=== PATIENT | female | born 1940 | race Caucasian/White ===

== ENCOUNTER 2016-11-08 17:53 | Inpatient (IN) | payer MEDICARE, OTHER ==
[~2016-11-08] VITALS: Ht 160 cm; Wt 85.5 kg
[2016-11-08 19:47] LABS: Basophils # (auto) 0.1 uL; Basophils % (auto) 0.6 % (0.0-2.0); CONDITION Y; DEFINITIVE SEE PRINTOUT; Eosinophils # (auto) 0.2 uL; Hematocrit 42.7 % (36.0-46.0); Hemoglobin 13.8 g/dL (12.2-16.2); Lymphocytes # (auto) 2.2 uL; Lymphocytes % (auto) 14.1 % (10.0-50.0); Mean Corpuscular Hemoglobin 24.7 pg (28.0-32.0); Mean Corpuscular Hgb Conc. 32.4 g/dL (32.0-36.0); Mean Corpuscular Volume 76.3 fL (80.0-100.0); Mean Platelet Volume 10.3 fL (7.4-10.4); Monocytes # (auto) 0.8 uL; Monocytes % (auto) 5.4 % (0.0-12.0); Neutrophils # (auto) 12.2 uL; Neutrophils % (auto) 78.9 % (37.0-80.0); Platelet Count (auto) 343 10^3/uL (140-450); Red Cell Distribution Width 14.7 % (11.6-16.0); White Blood Cell 15.5 10^3/uL (4.4-10.8)
[2016-11-08 20:06] LABS: Albumin 4.3 g/dL (3.4-5.0); Alkaline Phosphatase 100 U/L (45-117); Anion Gap 11 (5-15); Aspartate Aminotransferase 18 U/L (15-37); BUN/Creatinine Ratio 17.1; Bilirubin, Total 0.4 mg/dL (0.2-1.0); Blood Urea Nitrogen 19 mg/dL (7-18); Calcium 9.5 mg/dL (8.5-10.1); Carbon Dioxide 25 mmol/L (21-32); Chloride 107 mmol/L (98-107); GFR African American 61 mL/min; GFR Non-African American 51 mL/min; Glucose 156 mg/dL (74-106); Magnesium 2.2 mg/dL (1.6-2.6); Potassium 4.5 mmol/L (3.5-5.1); Sodium 143 mmol/L (136-145); Total Protein 7.8 g/dL (6.4-8.2)
[2016-11-08] MEDS ORDERED: cloNIDine HCL 0.1 MG TAB PO ONE (23:15)
[2016-11-08 23:56] LABS: Amylase 60 U/L (25-115)
[2016-11-09] MEDS ORDERED: ONDANSETRON HCL 4 MG/2 ML VIAL IV ONE (01:45)
[2016-11-09] MEDS ORDERED: MORPHINE SULF INJ 2 MG/ML SYRINGE 1ML IV ONE (01:45)
[2016-11-09] MEDS ORDERED: NITROGLYCERIN 0.4 MG SL TAB SL PRN (02:00)
[2016-11-09] MEDS ORDERED: ACETAMINOPHEN 500 MG TAB PO PRN (02:00)
[2016-11-09] MEDS ORDERED: TEMAZEPAM 15 MG CAP PO PRN (02:00)
[2016-11-09] MEDS ORDERED: HYDROcodone-ACET 5/325MG TAB PO PRN (02:00)
[2016-11-09] MEDS ORDERED: MORPHINE SULF INJ 2 MG/ML SYRINGE 1ML IV PRN ×2 (02:00)
[2016-11-09] MEDS ORDERED: ONDANSETRON HCL 4 MG/2 ML VIAL IV PRN (02:00)
[2016-11-09] MEDS ORDERED: LORazepam 0.5 MG TAB PO PRN (02:00)
[2016-11-09] MEDS: SODIUM CHLORIDE 0.9% 1,000 ML IV SCH ×3 (02:18→22:15)
[2016-11-09 03:20] LABS: Lactic Acid w/Reflex 3.8 mmol/L (0.4-2.0)
[2016-11-09 03:24] LABS: REFLEX LACTIC ACID YES OR NO YES
[2016-11-09] MEDS: metroNIDAZOLE 500MG/100ML 100 ML IV SCH ×3 (06:20→17:57)
[2016-11-09 07:05] LABS: Urine Bilirubin Negative (Negative); Urine Blood TRACE /uL (Negative); Urine Color Yellow (Yellow); Urine Mucus FEW (None Seen); Urine Nitrite Negative (Negative); Urine RBC 2 /hpf (0 - 4); Urine Squamous Epithelial Cell FEW /hpf (<5); Urine Urobilinogen Normal (Negative)
[2016-11-09 07:07] LABS: Urine Glucose 2+ mg/dL (Normal); Urine Ketone 1+ (Negative)
[2016-11-09 08:50] VITALS: BP 104/53
[2016-11-09 11:57] VITALS: BP 105/60
[2016-11-09] MEDS: PANTOPRAZOLE SODIUM 40 MG/10 ML VIAL IV SCH ×2 (12:18→22:14)
[2016-11-09 15:03] LABS: Basophils # (auto) 0.1 uL; Basophils % (auto) 0.9 % (0.0-2.0); CONDITION Y; DEFINITIVE SEE PRINTOUT; Eosinophils # (auto) 0.1 uL; Eosinophils % (auto) 0.8 % (0.0-7.0); Hematocrit 34.3 % (36.0-46.0); Hemoglobin 11.2 g/dL (12.2-16.2); Lymphocytes # (auto) 2.4 uL; Lymphocytes % (auto) 22.1 % (10.0-50.0); Mean Corpuscular Hemoglobin 25.1 pg (28.0-32.0); Mean Corpuscular Hgb Conc. 32.8 g/dL (32.0-36.0); Mean Corpuscular Volume 76.5 fL (80.0-100.0); Mean Platelet Volume 9.6 fL (7.4-10.4); Monocytes # (auto) 0.8 uL; Monocytes % (auto) 7.4 % (0.0-12.0); Neutrophils # (auto) 7.4 uL; Neutrophils % (auto) 68.8 % (37.0-80.0); Platelet Count (auto) 264 10^3/uL (140-450); White Blood Cell 10.7 10^3/uL (4.4-10.8)
[2016-11-09 15:11] LABS: BUN/Creatinine Ratio 21.5; Calcium 8.6 mg/dL (8.5-10.1); Potassium 4.1 mmol/L (3.5-5.1)
[2016-11-09 17:17] VITALS: BP 121/64
[2016-11-09 22:00] VITALS: BP 129/73
[2016-11-10] MEDS: metroNIDAZOLE 500MG/100ML 100 ML IV SCH ×3 (00:09→12:00)
[2016-11-10 05:00] VITALS: BP 154/87
[2016-11-10] MEDS: SODIUM CHLORIDE 0.9% 1,000 ML IV SCH (06:13)
[2016-11-10 06:28] LABS: Basophils # (auto) 0.1 uL; Basophils % (auto) 0.7 % (0.0-2.0); CONDITION Y; DEFINITIVE SEE PRINTOUT; Eosinophils # (auto) 0.2 uL; Eosinophils % (auto) 2.8 % (0.0-7.0); Hematocrit 33.7 % (36.0-46.0); Hemoglobin 11.1 g/dL (12.2-16.2); Lymphocytes # (auto) 2.8 uL; Lymphocytes % (auto) 36.4 % (10.0-50.0); Mean Corpuscular Hemoglobin 25.1 pg (28.0-32.0); Mean Corpuscular Hgb Conc. 32.9 g/dL (32.0-36.0); Mean Corpuscular Volume 76.5 fL (80.0-100.0); Mean Platelet Volume 9.6 fL (7.4-10.4); Monocytes # (auto) 0.5 uL; Monocytes % (auto) 6.8 % (0.0-12.0); Neutrophils # (auto) 4.1 uL; Neutrophils % (auto) 53.3 % (37.0-80.0); Platelet Count (auto) 243 10^3/uL (140-450); Red Cell Distribution Width 15.3 % (11.6-16.0); White Blood Cell 7.6 10^3/uL (4.4-10.8)
[2016-11-10 06:42] LABS: INR 1.05 (0.9-1.15); Partial Thromboplastin Time 25.4 sec (22.64-33.71); Prothrombin Time 11.4 sec (9.37-12.3)
[2016-11-10 06:44] LABS: Calcium 8.4 mg/dL (8.5-10.1); Potassium 4.8 mmol/L (3.5-5.1)
[2016-11-10 08:00] VITALS: BP 118/73
[2016-11-10 08:45] VITALS: BP 158/85
[2016-11-10] MEDS ORDERED: LIDOCAINE VISCOUS 2% 15ML UD ONE (10:24)
[2016-11-10] MEDS ORDERED: diphenhdrAMINE HCL 50 MG/1 ML VL ONE (10:25)
[2016-11-10] MEDS ORDERED: SODIUM CHLORIDE LOCK 10 ML ONE (10:25)
[2016-11-10] MEDS: MIDAZOLAM HCL 5 MG/ML-1ML VIAL ONE ×2 (12:17→12:21)
[2016-11-10] MEDS: fentaNYL CITRATE 100 MCG/2 ML VL ONE ×2 (12:17→12:21)
[2016-11-10] MEDS ORDERED: FLUO-125 PO (12:42)
[2016-11-10] MEDS ORDERED: LISI2.5T47 PO (12:42)
[2016-11-10] MEDS ORDERED: PANT1INJ3 PO (12:42)
[2016-11-10] MEDS ORDERED: GABA-497 PO (12:42)
[2016-11-10] MEDS ORDERED: ATE50T PO (12:42)
[2016-11-10] MEDS ORDERED: ALPR0.254 PO (12:42)
[2016-11-10 14:00] VITALS: BP 141/72
[2016-11-10] MEDS ORDERED: LISINOPRIL 10 MG TAB PO ONE (14:00)
[2016-11-10] MEDS ORDERED: ATENOLOL 50 MG TAB PO ONE (14:00)
[2016-11-10 16:14] VITALS: BP 141/72
[2016-11-10 17:07] VITALS: BP 145/81
[2016-11-10] MEDS ORDERED: PANTOPRAZOLE 40 MG TAB PO SCH (22:00)
== END 2016-11-10 17:37 | disposition home health service (06) | DRG 392 ==
LOC: ER 17:59 → OVERFLOW 18:00 → TELE-E-ADS 11-09 07:52 → EAST 11-09 11:48
PROVIDERS: ADMIT Nurse Practitioner Family; ATTEND Internal Medicine
PROC: 0DB68ZX Excision of Stomach, Via Natural or Artificial Opening Endoscopic, Diagnostic (ICD-10-PCS; principal; 2016-11-10 12:15)
DX: K44.9 Diaphragmatic hernia without obstruction or gangrene (principal); E86.0 Dehydration; K21.9 Gastro-esophageal reflux disease without esophagitis; F41.9 Anxiety disorder, unspecified; I10 Essential (primary) hypertension; D72.829 Elevated white blood cell count, unspecified; K29.70 Gastritis, unspecified, without bleeding; Z82.49 Family history of ischemic heart disease and other diseases of the circulatory system; Z90.49 Acquired absence of other specified parts of digestive tract
CPT/HCPCS: 36415; 71020; 74176; 80048; 80053; 81001; 82150; 83036; 83605; 83690; 83735; 84484; 85025; 85610; 85730; 86677; 87040; 87086; 93005; 96374; 96375; C9113; J2250; J2405; J3490

== ENCOUNTER 2020-07-07 07:31 | Inpatient (IN) | payer OTHER ==
[~2020-07-07] VITALS: Ht 160 cm; Wt 74.0 kg
[~2020-07-07 07:31] MED LIST: ALPR0.254 PO; ATE50T PO; FLUO-125 PO; GABA300C10 PO; LISI2.5T47 PO
[2020-07-07] MEDS ORDERED: ONDANSETRON HCL 4 MG/2 ML VIAL IV ONE (08:45)
[2020-07-07] MEDS ORDERED: MORPHINE SULFATE 4 MG/ML SYR/VIAL IV ONE (08:45)
[2020-07-07 11:28] LABS: Basophils # (auto) 0.1 10 ^3/uL (0-0.2); Eosinophils # (auto) 0.1 10 ^3/uL (0-0.8); Lymphocytes % (auto) 8.1 % (10.0-50.0); Monocytes # (auto) 0.7 10 ^3/uL (0-1.3); Neutrophils % (auto) 84.8 % (37.0-80.0)
[2020-07-07 11:30] LABS: Basophils % (auto) 0.4 % (0.0-2.0); Eosinophils % (auto) 0.8 % (0.0-7.0); Hematocrit 36.3 % (36.0-46.0); Mean Corpuscular Hemoglobin 25.8 pg (28.0-32.0); Mean Corpuscular Volume 78.2 fL (80.0-100.0); Monocytes % (auto) 5.9 % (0.0-12.0); Neutrophils # (auto) 10.7 10 ^3/uL (1.6-8.6); Platelet Count (auto) 268 10^3/uL (140-450); Red Blood Cells 4.65 10^6/uL (4.0-5.20); Red Cell Distribution Width 14.7 % (11.8-14.3); White Blood Cell 12.7 10^3/uL (4.4-10.8)
[2020-07-07 11:42] LABS: Albumin 3.2 g/dL (3.4-5.0); Anion Gap 4 (5-15); Blood Urea Nitrogen 17 mg/dL (7-18); Calcium 8.7 mg/dL (8.5-10.1); Carbon Dioxide 27 mmol/L (21-32); Chloride 113 mmol/L (98-107); Potassium 3.6 mmol/L (3.5-5.1); Sodium 144 mmol/L (136-145)
[2020-07-07 11:49] LABS: Alanine Aminotransferase 31 U/L (13-56); Alkaline Phosphatase 90 U/L (45-117); Aspartate Aminotransferase 47 U/L (15-37); BUN/Creatinine Ratio 18.5; Bilirubin, Total 0.5 mg/dL (0.2-1.0); GFR African American 75 mL/min; GFR Non-African American 62 mL/min; Glucose 143 mg/dL (74-106)
[2020-07-07 11:53] LABS: INR 1.08 (0.9-1.15); Partial Thromboplastin Time 25.8 sec (23.0-31.2)
[2020-07-07 18:59] LABS: Urine Bacteria NONE SEEN /hpf (None Seen); Urine Blood TRACE /uL (Negative); Urine Specific Gravity 1.021 (1.001-1.035); Urine WBC 1 /hpf (0 - 5)
[2020-07-07] MEDS ORDERED: HYDROcodone-ACET 5/325MG TAB PO PRN (19:30)
[2020-07-07] MEDS ORDERED: hydrALAZINE HCL 20 MG/ML VL IV PRN (19:30)
[2020-07-07] MEDS ORDERED: LISINOPRIL 5 MG TAB PO ONE ×2 (19:30→22:30)
[2020-07-07] MEDS ORDERED: MORPHINE SULF INJ 2 MG/ML SYRINGE 1ML IV PRN (19:30)
[2020-07-07] MEDS ORDERED: ACETAMINOPHEN 650 mg PER 20.3 mL UD PO PRN (19:30)
[2020-07-07] MEDS ORDERED: NITROGLYCERIN 0.4 MG SL TAB SL PRN (19:30)
[2020-07-07] MEDS ORDERED: ONDANSETRON HCL 4 MG/2 ML VIAL IV PRN (19:30)
[2020-07-07] MEDS ORDERED: LORazepam 2MG/ML-1ML VIAL IV PRN (19:45)
[2020-07-07] MEDS ORDERED: amLODIPine BESYLATE 5 MG TAB PO SCH (22:00)
[2020-07-07] MEDS ORDERED: amLODIPine BESYLATE 5 MG TAB PO ONE (22:30)
[2020-07-07 23:30] LABS: Cholesterol 143 mg/dL (< 200); Triglycerides 69 mg/dL (< 150)
[2020-07-07 23:32] LABS: HDL Cholesterol 55 mg/dL (40-59); LDL Cholesterol 75 mg/dL (< 100)
[2020-07-08 06:17] LABS: Basophils # (auto) 0.1 10 ^3/uL (0-0.2); Eosinophils # (auto) 0 10 ^3/uL (0-0.8); Eosinophils % (auto) 0.2 % (0.0-7.0); Monocytes # (auto) 0.9 10 ^3/uL (0-1.3); White Blood Cell 11.8 10^3/uL (4.4-10.8)
[2020-07-08 06:19] LABS: Basophils % (auto) 0.8 % (0.0-2.0); Hematocrit 35.3 % (36.0-46.0); Hemoglobin 11.5 g/dL (12.2-16.2); Lymphocytes # (auto) 1.1 10 ^3/uL (0.4-5.4); Lymphocytes % (auto) 9.7 % (10.0-50.0); Mean Corpuscular Hemoglobin 25.7 pg (28.0-32.0); Mean Corpuscular Hgb Conc. 32.7 g/dL (32.0-36.0); Mean Corpuscular Volume 78.6 fL (80.0-100.0); Monocytes % (auto) 7.3 % (0.0-12.0); Neutrophils # (auto) 9.7 10 ^3/uL (1.6-8.6); Platelet Count (auto) 249 10^3/uL (140-450); Red Blood Cells 4.49 10^6/uL (4.0-5.20); Red Cell Distribution Width 14.7 % (11.8-14.3)
[2020-07-08 06:31] LABS: INR 1.13 (0.9-1.15); Partial Thromboplastin Time 25.2 sec (23.0-31.2)
[2020-07-08 06:33] LABS: Albumin 3.4 g/dL (3.4-5.0); Calcium 8.3 mg/dL (8.5-10.1); Potassium 3.5 mmol/L (3.5-5.1)
[2020-07-08 06:36] LABS: Bilirubin, Total 0.7 mg/dL (0.2-1.0); Total Protein 7.2 g/dL (6.4-8.2)
[2020-07-08 09:00] VITALS: BP 146/68
[2020-07-08] MEDS ORDERED: LISINOPRIL 5 MG TAB PO SCH (10:00)
[2020-07-08] MEDS: LISINOPRIL 5 MG TAB PO SCH ×2 (10:00→20:35)
[2020-07-08] MEDS: PANTOPRAZOLE 40 MG TAB PO SCH (10:00)
[2020-07-08] MEDS ORDERED: ASPirin 81 mg TAB PO SCH (10:00)
[2020-07-08] MEDS: ATORVASTATIN 20 MG TAB PO SCH (10:00)
[2020-07-08] MEDS: amLODIPine BESYLATE 5 MG TAB PO SCH ×2 (10:00→20:34)
[2020-07-08 10:09] VITALS: BP 146/68
[2020-07-08 10:20] LABS: Folate (Folic Acid) > 24.00 ng/mL (5.38-24)
[2020-07-08] MEDS ORDERED: DICL1GEL50 TOP (10:24)
[2020-07-08] MEDS ORDERED: ATEN50TA PO (10:24)
[2020-07-08] MEDS ORDERED: LISI-648 PO (10:24)
[2020-07-08] MEDS ORDERED: IBUP800T26 PO (10:24)
[2020-07-08] MEDS ORDERED: PANT40T PO (10:24)
[2020-07-08] MEDS ORDERED: FLUO1TAB3 PO (10:24)
[2020-07-08] MEDS ORDERED: LATA0.0019 EACHEYE (10:24)
[2020-07-08 13:00] VITALS: BP_SYST 144; BP_SYST 151; BP_DIAS 70; BP_DIAS 99
[2020-07-08 16:40] VITALS: BP 158/77
[2020-07-08] MEDS: MORPHINE SULF INJ 2 MG/ML SYRINGE 1ML IV PRN (20:22)
[2020-07-08 21:42] VITALS: BP 149/65
[2020-07-09 05:30] VITALS: BP 155/69
[2020-07-09 09:00] VITALS: BP 145/65
[2020-07-09] MEDS: amLODIPine BESYLATE 5 MG TAB PO SCH (10:36)
[2020-07-09] MEDS: LISINOPRIL 5 MG TAB PO SCH (10:37)
[2020-07-09] MEDS: PANTOPRAZOLE 40 MG TAB PO SCH (10:37)
[2020-07-09] MEDS: ATORVASTATIN 20 MG TAB PO SCH (10:37)
[2020-07-09] MEDS: MORPHINE SULF INJ 2 MG/ML SYRINGE 1ML IV PRN (10:38)
[2020-07-09 12:49] VITALS: BP 114/56
[2020-07-09] MEDS ORDERED: AML5T PO (16:34)
[2020-07-09] MEDS ORDERED: APIX2.5T OR (16:51)
[2020-07-09 17:00] VITALS: BP 147/74
[2020-07-09] MEDS: ASPirin 81 mg TAB PO SCH (17:59)
[2020-07-09 21:00] VITALS: BP 143/67
[2020-07-09] MEDS: APIXABAN 2.5 MG TAB PO SCH (21:50)
[2020-07-10 05:00] VITALS: BP 149/68
[2020-07-10 08:04] VITALS: BP 160/73
[2020-07-10] MEDS: ASPirin 81 mg TAB PO SCH (09:13)
[2020-07-10] MEDS: LISINOPRIL 5 MG TAB PO SCH (09:14)
[2020-07-10] MEDS: PANTOPRAZOLE 40 MG TAB PO SCH (09:15)
[2020-07-10] MEDS: amLODIPine BESYLATE 5 MG TAB PO SCH (09:15)
[2020-07-10] MEDS: APIXABAN 2.5 MG TAB PO SCH (09:15)
[2020-07-10] MEDS ORDERED: ATORVASTATIN 20 MG TAB PO SCH (10:00)
[2020-07-10] MEDS ORDERED: levoFLOXacin 500 MG TAB PO ONE (12:45)
[2020-07-10] MEDS ORDERED: LISINOPRIL 10 MG TAB PO ONE (12:45)
[2020-07-10 12:49] VITALS: BP 113/59
[2020-07-10 16:06] VITALS: BP 160/73
[2020-07-10 17:30] VITALS: BP 138/68
[2020-07-10 20:00] VITALS: BP 132/78
[2020-07-11] MEDS ORDERED: LISINOPRIL 5 MG TAB PO SCH (10:00)
[2020-07-11] MEDS ORDERED: levoFLOXacin 500 MG TAB PO SCH (10:00)
== END 2020-07-10 20:20 | DRG 562 ==
LOC: EDBD 07:31 → ER 07:31 → TELE 19:35 → TELE-WESTW 07-08 08:59
PROVIDERS: ADMIT Internal Medicine; ATTEND Internal Medicine
DX: S82.891A Other fracture of right lower leg, initial encounter for closed fracture (principal); I63.532 Cerebral infarction due to unspecified occlusion or stenosis of left posterior cerebral artery; G93.40 Encephalopathy, unspecified; R62.7 Adult failure to thrive; W18.39XA Other fall on same level, initial encounter; Y93.01 Activity, walking, marching and hiking; Y92.89 Other specified places as the place of occurrence of the external cause; Y99.8 Other external cause status; I10 Essential (primary) hypertension; K21.9 Gastro-esophageal reflux disease without esophagitis; F41.9 Anxiety disorder, unspecified; F32.9 Major depressive disorder, single episode, unspecified; E66.01 Morbid (severe) obesity due to excess calories; F03.90 Unspecified dementia, unspecified severity, without behavioral disturbance, psychotic disturbance, mood disturbance, and anxiety; H53.461 Homonymous bilateral field defects, right side; I27.20 Pulmonary hypertension, unspecified; R29.6 Repeated falls; Z20.822 Contact with and (suspected) exposure to COVID-19; D72.829 Elevated white blood cell count, unspecified; F17.200 Nicotine dependence, unspecified, uncomplicated; I35.0 Nonrheumatic aortic (valve) stenosis; Z79.82 Long term (current) use of aspirin; Z79.899 Other long term (current) drug therapy; Z83.3 Family history of diabetes mellitus; Z68.28 Body mass index [BMI] 28.0-28.9, adult
CPT/HCPCS: 36415; 51702; 70450; 70486; 70551; 71045; 71250; 72125; 73610; 73700; 74176; 80053; 80061; 81001; 82607; 82746; 84443; 84484; 85025; 85610; 85730; 86850; 86870; 86900; 86901; 87426; 92610; 93005; 93306; 93886; 95819; 96374; 96375; G0378; J2405